=== PATIENT | female | born 1995 ===

== ENCOUNTER 2018-02-27 06:19 | Inpatient (IN) | payer OTHER ==
[~2018-02-27] VITALS: Ht 162.6 cm; Wt 3.2 kg
[2018-02-27] MEDS ORDERED: PRENATAL TABLE1 EAC2 PO (08:54)
== END 2018-03-02 15:44 | DRG 766 ==
LOC: LDR 06:19 → O/R 22:20 → OB/GYN 02-28 00:11
PROVIDERS: Obstetrics & Gynecology
PROC: 10907ZC Drainage of Amniotic Fluid, Therapeutic from Products of Conception, Via Natural or Artificial Opening (ICD-10-PCS; 2018-02-27)
PROC: 3E033VJ Introduction of Other Hormone into Peripheral Vein, Percutaneous Approach (ICD-10-PCS; 2018-02-27)
PROC: 4A1HXCZ Monitoring of Products of Conception, Cardiac Rate, External Approach (ICD-10-PCS; 2018-02-27)
PROC: 10D00Z1 Extraction of Products of Conception, Low, Open Approach (ICD-10-PCS; principal; 2018-02-27 21:00)
DX: O82 Encounter for cesarean delivery without indication (principal); Z3A.39 39 weeks gestation of pregnancy; Z37.0 Single live birth